=== PATIENT | female | born 1995 | race Hispanic/Latino ===

== ENCOUNTER 2022-04-30 06:27 | Emergency (ER) | payer OTHER ==
[~2022-04-30] VITALS: Ht 154.9 cm; Wt 55.7 kg
[2022-04-30] MEDS ORDERED: LORAZEPAM0.5 MG (07:44)
--- NOTE | 2022-05-01 06:59 | EKG ---
[facility] [address] [place] [address] Signed Normal sinus rhythm with sinus arrhythmia Anteroseptal infarct , age undetermined Abnormal ECG No previous ECGs available Confirmed by GUY DAMON MD ([id number]) on 05/01/2022 6:59:04 AM Electronically Signed By: GUY DAMON MD 05/01/22 0659 PATIENT NAME: CHICO ROME SOFI Electrocardiogram DATE OF : [birth year] PHYSICIAN: GUY DAMON MD REPORT #: [id number] REPORT IS CONFIDENTIAL AND NOT TO BE RELEASED WITHOUT AUTHORIZATION
== END 2022-04-30 09:58 | disposition home or self-care (01) ==
LOC: ED 06:27
DX: F41.9 Anxiety disorder, unspecified (principal)
CPT/HCPCS: 93005; 93010; 99283-25

== ENCOUNTER 2022-04-30 22:30 | Emergency (ER) | payer OTHER ==
[~2022-04-30] VITALS: Ht 154.9 cm; Wt 55.3 kg
[~2022-04-30 22:30] MED LIST: LORAZEPAM0.5 MG
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
== END 2022-05-01 15:39 | disposition home or self-care (01) ==
LOC: ED 22:30
DX: F41.9 Anxiety disorder, unspecified (principal); Z20.822 Contact with and (suspected) exposure to COVID-19
CPT/HCPCS: 36415; 80053; 81001; 84443; 84703; 85025; 87502; 99283; A9270-GY; C9803; G0480; U0003